=== PATIENT | male | born 1965 | race Caucasian/White ===

== ENCOUNTER → 2016-12-14 | Day surgery (SDC) | payer SELFPAY ==
[~2016-12-14] MED LIST: EFFEXOR XR150 MG PO
--- NOTE | ~2016-12-14 | CR7 ---
[facility]. [facility] A Service of [facility] & [facility] RADIOLOGY TEXT RESULTS PATIENT: JANEEN MARIE LOCATION: [facility] : 63 UNIT #: [id number] AGE: [address]: Tmibo Arboleda III, MD SEX: M ORDER DR: [id number] [facility] [address] [place], [place] [address] [id number] O MR#: [id number] Acc #: [id number] NAME: JANEEN MARIE : 1965 SEX: M STUDY DATE/TIME: 12/14/2016 10:59 UNIT: [facility] ROOM: STUDY DESCRIPTION: CR Abdomen Single AP View Attending Physician: Timbo Arboleda III, M.D. Ordering Physician: Timbo Arboleda III, M.D. Primary Care Physician: Generic Doctor Not In System MEDICAL IMAGING REPORT This report is preliminary unless electronic signature is present EXAM Abdomen INDICATION Postop lap-band procedure and placement. Evaluate band placement. FINDINGS Supine view of the abdomen was obtained. The lap-band device is slightly rotated more than usually seen with an angle of 80 degrees off of the midline through the spine. The bowel gas pattern is normal. IMPRESSION The ring of the lap-band device has about an 80 degrees angle off of the vertical through the spine which is slightly greater than normally seen. Clinical correlation is recommended. Otherwise the study is negative. STAT * RESULT Dictated by... Delon Lim M.D. THIS IS AN ELECTRONICALLY VERIFIED REPORT Delon Lim M.D. at 12/14/2016 2:05 PM SHANTEL/doyle TD: 12/14/2016 11:37 JOB #: [id number] MEDICAL IMAGING REPORT COPY
--- NOTE | ~2016-12-14 | OR ---
Unit #: [id number] #: [id number] Patient: JANEEN MARIE [id number] [facility] [address] [place], [place] [address] [id number] O MR#: [id number] NAME: JANEEN MARIE ROOM: Date of Procedure: 12/14/2016 Admission Date: 12/14/2016 Surgeon: Timbo Arboleda III, M.D. : 1965 Attending Physician: Timbo Arboleda III, M.D. OPERATIVE REPORT PREOPERATIVE DIAGNOSIS Chronic morbid obesity. POSTOPERATIVE DIAGNOSIS Chronic morbid obesity. SECONDARY DIAGNOSIS Anterior paraesophageal hernia. PROCEDURES PERFORMED Laparoscopic adjustable gastric banding (AP Large with low-profile port) and laparoscopic paraesophageal hernia repair. [employer]IDENT [employer] Justin Pires M.D. SPECIMENS None. COMPLICATIONS None apparent. ESTIMATED BLOOD LOSS Minimal. INDICATIONS FOR PROCEDURE This is a 51-year-old gentleman who has chronic severe obesity with a BMI of 39 and chronic obstructive sleep apnea. He has been through the bariatric program at [facility], and understands the risks and benefits of the procedure. DESCRIPTION OF PROCEDURE After consent was obtained, including the risks and benefits of slippage, erosion, port dysfunction, and possible failure of weight loss due to noncompliance, the patient was taken to the operating room and placed in the supine position. General anesthetic was administered and the abdomen was prepped and draped in standard surgical fashion. I began by making a 2 cm incision just above and to the left of the umbilicus. I used a Visiport to enter the peritoneal cavity without any difficulty. C02 pneumoperitoneum was then established. Next, I placed a 5 mm port in the right upper quadrant, a 5 mm Jennifer liver retractor in Unit #: [id number] #: [id number] Patient: JANEEN MARIE the subxiphoid region to provide exposure of the gastroesophageal junction. Next, a 10 mm port was placed in the left upper quadrant and a 5 mm port was placed in the left lateral subcostal region. I began by performing an examination of the GE junction to evaluate for a hiatal hernia. We then scored the peritoneal attachments overlying the angle of His. I then opened up the clear space in the gastrohepatic ligament, and then using 2 blunt graspers, I identified the small fat pad crossing over the right crura. I swept the fat anterior to the crura off the crura and using the pars flaccida, I created a retrogastric tunnel where the blunt grasper exited at the angle of His. Once I had made this tunnel safely, I then inserted an Allergan AP band into the abdominal cavity. This adjustable gastric band was then place around the upper part of the stomach and fastened and buckled anteriorly. We then tacked the lateral fundus over the band to the proximal pouch with 2 interrupted 0 Ethibond sutures. I then used a third stitch to imbricate the excess anterior stomach by going from the lesser curvature up towards where the last stitch was placed. We then had excellent hemostasis. I removed the Jennifer liver retractor. We then removed the port tubing through the initial port incision. The rest of the ports were removed, and the pneumoperitoneum was released. I then left a small tail on the tubing. We then attached the port to the excess band tubing. We placed a piece of Prolene mesh along the back side of the port and used a Prolene stitch to anchor this mesh in place. We then trimmed the excess mesh so that just a small footprint of mesh was in place behind the port. I then inserted the tubing back into the abdominal cavity, and we placed the port into a small pocket that was made just inferior to where our initial port incision was made. The mesh was in direct contact with the fascia, and this will scar in place to hold the port in place. We then injected all the port sites with 0.25% plain Marcaine, and I reapproximated the skin edges with interrupted 4-0 Vicryl subcuticular sutures. Steri-strips were then applied. The patient tolerated the procedure without any problems and returned to the recovery room in stable condition. ADDENDUM After exposure of the GE junction, the patient was noted to have a small to medium-sized anterior paraesophageal hernia. I scored the phrenoesophageal ligament and reduced the hernia defect, and after identifying both the right and left crura, I reapproximated the defect with an interrupted 0 Ethibond [id number] suture. I then proceeded with the case as listed above. Dictated by... Timbo Arboleda III, M.D. VCL/art TD: 12/16/2016 04:00 JOB #: [id number] CC: Jericho Wilkinson M.D. Unit #: [id number] #: [id number] Patient: JANEEN MARIE OPERATIVE REPORT X Timbo Arboleda III, MD PROCEDURE OPERATIVE NOTE
== END | disposition home or self-care (01) ==
LOC: CSUR 07:33
DX: E66.01 Morbid (severe) obesity due to excess calories (principal); K44.9 Diaphragmatic hernia without obstruction or gangrene; G47.30 Sleep apnea, unspecified; Z86.59 Personal history of other mental and behavioral disorders; Z90.49 Acquired absence of other specified parts of digestive tract; Z86.39 Personal history of other endocrine, nutritional and metabolic disease; Z83.42 Family history of familial hypercholesterolemia; Z82.49 Family history of ischemic heart disease and other diseases of the circulatory system
CPT/HCPCS: 74000; C1781; J0690; J1650; J1885; J2250; J2405; J3010

== ENCOUNTER → 2017-05-02 | Outpatient (CLI) | payer SELFPAY | END | disposition home or self-care (01) | LOC: CBAR 13:34 | DX: E66.01 Morbid (severe) obesity due to excess calories (principal) | CPT/HCPCS: 76000 ==